=== PATIENT | female | born 1970 | race Caucasian/White ===

== ENCOUNTER 2016-04-27 19:28 | Emergency (ER) | payer SELFPAY ==
[~2016-04-27] VITALS: Ht 160 cm; Wt 137.0 kg
[~2016-04-27 19:28] MED LIST: ALBU18HF INHALATION; ALBU8.5H3 INH; AZIT250T6 PO; FIORICET PO; GUAI100L25 PO; GUAI118L94 PO; GUAI120S26 PO; METF-382 PO; NAPR-260 PO; ONDA4TAB8 PO; POLY17PO6 PO; PRED20TA PO; PRED50TA PO; TRAM50TA2 PO; TYL500 PO
[2016-04-27 19:37] VITALS: Ht 160 cm; Wt 137.0 kg
[2016-04-27] MEDS ORDERED: SOD CHLORIDE 0.9% 1,000 ML IV STA (20:45)
[2016-04-27 21:16] LABS: BASOPHILS % 0.4 % (0.0-2.0); EOSINOPHILS # 0.4 10^3/ul (0.0-0.5); EOSINOPHILS % 3.3 % (0.0-7.0); HEMOGLOBIN 13.3 g/dl (12.0-16.0); LYMPHOCYTES # 2.5 10^3/ul (0.8-2.9); LYMPHOCYTES % 22.6 % (15.0-51.0); MEAN CORPUSCULAR HEMOGLOBIN 25.6 pg (29.0-33.0); MEAN CORPUSCULAR HGB CONC 33.2 g/dl (32.0-37.0); MEAN CORPUSCULAR VOLUME 77.2 fl (82.0-101.0); MEAN PLATELET VOLUME 8.1 fl (7.4-10.4); MONOCYTE # 0.6 10^3/ul (0.3-0.9); MONOCYTES % 5.7 % (0.0-11.0); NEUTROPHIL # 7.5 10^3/ul (1.6-7.5); PLATELET COUNT 344 10^3/UL (140-440); RED BLOOD COUNT 5.18 10^6/ul (4.20-5.40); RED CELL DISTRIBUTION WIDTH 15.9 % (11.5-14.5); UNCORRECTED WBC 11.1 10^3/ul (4.8-10.8); WHITE BLOOD COUNT 11.1 10^3/ul (4.8-10.8)
[2016-04-27 21:19] LABS: CONDITION 1; LH ANALYZER COMMENTS 1
[2016-04-27 21:27] LABS: INR 0.91; PROTIME 12.2 Sec (12.2-14.2)
[2016-04-27 21:28] LABS: CHLORIDE 98 mmol/L (97-110); PARTIAL THROMBOPLASTIN TIME 27.5 Sec (25.0-35.0); POTASSIUM 4.4 mmol/L (3.5-5.1); SODIUM 141 mmol/L (135-144)
[2016-04-27 21:30] LABS: D-DIMER 251.23 ng/ml (<460)
[2016-04-27 21:31] LABS: ANION GAP 18 (8-16); BLOOD UREA NITROGEN 14 mg/dl (7-20); CARBON DIOXIDE 29 mmol/L (21-31); CREATININE 0.67 mg/dl (0.44-1.00); GLUCOSE 149 mg/dl (70-220)
[2016-04-27 21:32] LABS: CALCIUM 10.2 mg/dl (8.4-10.2)
[2016-04-27 21:45] LABS: B-TYPE NATRIURETIC PEPTIDE 35 PG/ML (0-125)
--- NOTE | 2016-04-27 21:46 | RADRPT ---
PROCEDURE: XR Chest. CLINICAL INDICATION: Chest pain. TECHNIQUE: Single frontal view of the chest was obtained COMPARISON: 03/04/2016. FINDINGS: The heart and mediastinum are within normal limits. Portable technique and patient body habitus acc entuate pulmonary vascular markings. The lungs are otherwise clear. There is no pleural effusion or pneumothorax. IMPRESSION: No acute disease. RPTAT: [facility] Physician [place] Date Time Electronically viewed and signed by [place] Physician on 04/27/2016 21:46 RS/
--- NOTE | 2016-04-27 21:52 | RADRPT ---
PROCEDURE: CT Brain without contrast. CLINICAL INDICATION: Headaches TECHNIQUE: A CT of the brain was performed on a [employer] 64-slice CT scanner utilizing axial imaging from the skull base through the vertex without IV contrast. Multiplanar reformatted images were made. Images were reviewed on a PACS workstation. The CTDIvol is 43.27 mGy and the DLP is 810 .25 mGycm. One of the following 3 dose reduction techniques were used: Automated exposure control; adjustment of the mA and/or kV according to patient size; or use of iterative reconstruction technique. COMPARISON: None available FINDINGS: There is no intracranial hemorrhage, mass effect, or midline shift. No extra-axial fluid collection is seen. The ventricles and sulci are normal in size and configuration. The density of the brain is normal, and the irving white matter differentiation appears well-preserved. The visualized scalp and calvarium are normal. The bilateral orbits are normal. The bilateral para nasal sinuses, mastoid air cells and middle ear cavities are clear. IMPRESSION: 1. No evidence of acute intracranial hemorrhage, infarcts or acute intracranial pathology. 2. Normal noncontrast head CT. RPTAT: [facility] .Justyna Major MD, Date Time Electronically viewed and signed by .Justyna Major MD, MD on 04/27/2016 21:52 .C/
[2016-04-27 21:57] LABS: TROPONIN-I < 0.012 ng/ml (0.00-0.12)
[2016-04-27] MEDS ORDERED: ACET/BUTAL/CAFF/CODEINE CAP PO ONE (22:30)
--- NOTE | 2016-04-27 22:37 | ERD ---
ER Documentation Chief Complaint Date/Time DATE: 04/27/16 TIME: 22:24 Chief Complaint kwong/right arm pain/numbess in right hand since , vomited x 2 HPI This is a 45-year-old female presenting to the emergency department for multiple complaints. Patient states she has had a headache with shortness of breath and generalized body pain 6 days. Patient also reports right-sided arm numbness and tingling. No facial numbness or tingling. No facial weakness. No generalized weakness. States this is not the worst headache she is ever had. Headache is nonradiating. No neck pain or neck stiffness. No fevers or chills denies chest pain or difficulty breathing. Patient has intermittent shortness of breath. No wheezing or cough. Has history of asthma but has not been using an inhaler. Denies any heart problems or history of CHF. ROS All systems reviewed and are negative except as per history of present illness. Medications Home Meds Active Scripts Guaifenesin/Codeine Phosphate (CHERATUSSIN AC SYRUP) 118 Ml Liquid, 10 ML PO Q6H Y for COUGH, #118 ML Prov:AWILDA GARCÍA NP 04/27/16 Acetamin/Butalbital/Caffeine* (Fioricet*) [id number] Tab, 1 TAB PO Q6H Y for PAIN, #15 TAB Prov:AWILDA GARCÍA NP 04/27/16 Kzbefogjcaw-E-Nqwiywofbj Hb* (Guaifenesin* DM Syrup) 120 Ml Syrup, 10 ML PO Q4H Y for COUGH for 3 Days, #120 ML Prov:Ekta Calderon PA-C 03/04/16 Albuterol Sulfate* (Ventolin HFA*) 18 Gm Hfa.aer.ad, 2 PUFF INHALATION Q4H, #1 INHALER Prov:Ekta Calderon PA-C 03/04/16 Prednisone* (Prednisone*) 20 Mg Tab, 40 MG PO DAILY for 4 Days, TAB Prov:Ekta Calderon PA-C 03/04/16 Ondansetron Hcl* (Zofran*) 4 Mg Tablet, 4 MG PO Q6H for NAUSEA AND/OR VOMITING, #30 TAB Prov:RONNIE GRUBER PA-C 01/29/16 Naproxen* (Naprosyn*) 500 Mg Tablet, 500 MG PO BID Y for PAIN AND/OR INFLAMMATION, #30 TAB Prov:RONNIE GRUBER PA-C 01/29/16 Polyethylene Glycol* (Miralax*) 17 Gm Powd.pack, 17 GM PO DAILY, #30 PACKET Prov:RONNIE GRUBER PA-C 01/29/16 Tramadol HCl (Tramadol HCl) 50 Mg Tablet, 50 MG PO Q4 Y for PAIN, #20 TAB Prov:RONNIE GRUBER PA-C 01/29/16 Guaifenesin-Codeine Phosphate* (Guaifenesin* with Codeine Liq) 120 Ml Liquid, 5 ML PO Q4H for COUGH, #120 ML Prov:MARITZA FLEMING [employer] MAG[employer] 09/23/15 Albuterol Sulfate* (Ventolin HFA*) 18 Gm Hfa.aer.ad, 2 PUFF INHALATION Q4H, #1 INHALER Prov:MARITZA FLEMING [employer] MAGISTRATE 09/23/15 Prednisone* (Prednisone*) 50 Mg Tablet, 50 MG PO DAILY for 7 Days, #7 TAB Prov:ROBY ADAM 09/21/15 Albuterol Sulfate* (Proair HFA*) 8.5 Gm Hfa.aer.ad, 2 PUFF INH Q4, #1 INHALER Prov:ROBY ADAM 09/21/15 Acetamin/Butalbital/Caffeine* (Fioricet*) 1 Tab Tab, 2 TAB PO Q4H Y for PAIN LEVEL 6-10, #20 TAB Prov:ROBY ADAM 09/21/15 Reported Medications Metformin Hcl* (Metformin Hcl*) 500 Mg Tablet, 500 MG PO WITH BREAKFAST DINNE, # 30 TAB 09/21/15 Guaifenesin (Q-Tussin) 100 Mg/5 Ml Syrup, 100 MG PO Q6 Y for COUGH, ML 09/21/15 Acetaminophen* (Tylenol*) 500 Mg Tab, 1000 MG PO Q12 Y for PAIN AND OR ELEVATED TEMP, TAB 09/21/15 Albuterol Sulfate* (Proair HFA*) 8.5 Gm Hfa.aer.ad, 2 PUFF INH Q4H Y for WHEEZING AND SOB, #1 INHALER 09/21/15 Azithromycin* (Azithromycin*) 250 Mg Tablet, 500 MG PO ONCE, #1 TAB STARTED ON 09/19/ FOR 5 DAYS 09/21/15 Azithromycin* (Azithromycin*) 250 Mg Tablet, 250 MG PO DAILY, #4 TAB 09/21/15 Allergies Allergies: Coded Allergies: No Known Drug Allergies (Verified Allergy, Unknown, 01/29/16) PMhx/Soc History of Surgery: Yes (umbilical hernia, c/section) Anesthesia Reaction: No Hx Neurological Disorder: No Hx Respiratory Disorders: Yes (asthma) Hx Cardiac Disorders: Yes (HTN) Hx Psychiatric Problems: No Hx Miscellaneous Medical Probl: Yes (dm) Hx Alcohol Use: No Hx Substance Use: No Hx Tobacco Use: No Physical Exam Vitals Vital Signs Date Time Temp Pulse Resp B/P Pulse Ox O2 Delivery O2 Flow Rate FiO2 04/27/16 22:55 98.1 86 22 153/76 97 Room Air 04/27/16 19:37 98.7 104 22 114/61 95 Physical Exam Const: Alert, [id number] Head: Atraumatic Eyes: Normal Conjunctiva. PERRLA ENT: Normal External Ears, Nose and Mouth. Neck: Full range of motion..~ No meningismus. Resp: Clear to auscultation bilaterally. No wheezing, rhonchi or crackles. Cardio: Regular rate and rhythm, no murmurs Abd: Soft, non tender, non distended. Normal bowel sounds Skin: No petechiae or rashes Back: No midline or flank tenderness Ext: No cyanosis, or edema Neur: Awake and alert. Normal neuro exam. Strength equal bilaterally. Psych: Normal Mood and Affect Result Diagram: 04/27/16 2100 04/27/16 2100 Results 24 hrs Laboratory Tests Test 04/27/16 21:00 Activated Partial Thromboplast Time 27.5Sec Anion Gap 18 B-Type Natriuretic Peptide 35PG/ML Basophils # 0.010^3/ul Basophils % 0.4% Blood Morphology Comment Blood Urea Nitrogen 14mg/dl Calcium Level 10.2mg/dl Carbon Dioxide Level 29mmol/L Chloride Level 98mmol/L Creatinine 0.67mg/dl D-Dimer 251.23ng/ml D-Dimer Comment Eosinophils # 0.410^3/ul Eosinophils % 3.3% Glucose Level 149mg/dl Hematocrit 40.0% Hemoglobin 13.3g/dl INR International Normalized Ratio 0.91 Lymphocytes # 2.510^3/ul Lymphocytes % 22.6% Mean Corpuscular Hemoglobin 25.6pg Mean Corpuscular Hemoglobin Concent 33.2g/dl Mean Corpuscular Volume 77.2fl Mean Platelet Volume 8.1fl Monocytes # 0.610^3/ul Monocytes % 5.7% Neutrophils # 7.510^3/ul Neutrophils % 68.0% Nucleated Red Blood Cells # 0.010^3/ul Nucleated Red Blood Cells % 0.0/100WBC Platelet Count 37357^3/UL Potassium Level 4.4mmol/L Prothrombin Time 12.2Sec Prothrombin Time Ratio 1.0 Red Blood Count 5.1810^6/ul Red Cell Distribution Width 15.9% Sodium Level 141mmol/L Troponin I < 0.012ng/ml White Blood Count 11.110^3/ul Current Medications Medications (Trade) Dose Ordered Sig/[place] Route PRN Reason Start Time Stop Time Status Last Admin Dose Admin Sodium Chloride (NS) 1,000 ml @ 1,000 mls/hr Q1H STAT IV 04/27/16 20:45 04/27/16 21:44 DC 04/27/16 21:06 Acetam/Butalbital/ Caffeine/Codeine (Fioricet/ Codeine) 1 cap ONCE ONCE PO 04/27/16 22:30 04/27/16 22:31 DC 04/27/16 22:08 Procedures/MDM ED COURSE: The patient was stable throughout ED course. I kept the patient and/or family informed of laboratory and diagnostic imaging results throughout the ED course. Fioricet given Laboratory CBC WBC 11.1 otherwise negative BMP no significant electrolyte abnormality Troponin <0.012 PT 12.2 PTT 27.5 INR 0.91 BNP 35 D-dimer 251.23 Imaging Patient: MADDI MACHADO : 1970 Age: 45 Sex: F MR #: [id number] DOS: 04/27/162044 Ordering MD: AWILDA GARCÍA NP Location: [facility] Room/Bed: PROCEDURE: XR Chest. CLINICAL INDICATION: Chest pain. TECHNIQUE: Single frontal view of the chest was obtained COMPARISON: 03/04/2016. FINDINGS: The heart and mediastinum are within normal limits. Portable technique and patient body habitus accentuate pulmonary vascular markings. The lungs are otherwise clear. There is no pleural effusion or pneumothorax. IMPRESSION: No acute disease. Patient: MADDI MACHADO : 1970 Age: 45 Sex: F MR #: [id number] [facility] #: [id number] DOS: 04/27/162044 Ordering MD: AWILDA GARCÍA NP Location: [facility] Room/Bed: PROCEDURE: CT Brain without contrast. CLINICAL INDICATION: Headaches TECHNIQUE: A CT of the brain was performed on a [employer] 64-slice CT scanner utilizing axial imaging from the skull base through the vertex without IV contrast. Multiplanar reformatted images were made. Images were reviewed on a PACS workstation. The CTDIvol is 43.27 mGy and the DLP is 810.25 mGycm. One of the following 3 dose reduction techniques were used: Automated exposure control; adjustment of the mA and/or kV according to patient size; or use of iterative reconstruction technique. COMPARISON: None available FINDINGS: There is no intracranial hemorrhage, mass effect, or midline shift. No extra- axial fluid collection is seen. The ventricles and sulci are normal in size and configuration. The density of the brain is normal, and the irving white matter differentiation appears well-preserved. The visualized scalp and calvarium are normal. The bilateral orbits are normal. The bilateral paranasal sinuses, mastoid air cells and middle ear cavities are clear. IMPRESSION: 1. No evidence of acute intracranial hemorrhage, infarcts or acute intracranial pathology. 2. Normal noncontrast head CT. EKG: As interpreted by Dr. Nash Rate/Rhythm: Normal sinus rhythm with heart rate 98 bpm QRS, ST, T-waves: No changes consistent w/ acute ischemia Impression: No evidence of ischemia or arrhythmia MDM: 45 year old female presents to ER with multiple complaints. Patient had headache, shortness of breath and generalized body pain with right sided arm weakness. Patient given Fioricet for headache with some relief of pain. Labs unremarkable. No significant infection or anemia. No significant electrolyte imbalance. Troponin is negative. BNP is within normal limits. D-dimer is within normal limits. Chest x-ray reviewed by radiologist shows the heart and mediastinum are within normal limits. Portable technique and patient body habitus accentuate pulmonary vascular markings. The lungs are otherwise clear. There is no pleural effusion or pneumothorax. CT brain reviewed by radiologist as no evidence of acute intracranial hemorrhage, infarcts or acute intracranial pathology. Normal noncontrast head CT. Vital signs remained stable. EKG interpreted by myself and Dr. Nash as normal sinus rhythm with heart rate 98 bpm. Patient remains calm and comfortable throughout ED visit. Patient given IV fluid bolus of normal saline and Fioricet. Symptoms have now resolved. Low suspicion for acute LA, CVA, intracranial hemorrhage and mass. Patient is appropriate for outpatient management will be given prescription for Fioricet and Cheratussin AC syrup. Instructed patient to follow-up with primary care provider in the next 2-3 days for reassessment. Return to ED for any high fever, chest pain, difficulty breathing, shortness breath, wheezing, vomiting, diarrhea, abdominal pain or any new or worsening symptoms. Patient verbalizes understanding. All questions answered at discharge. Departure Diagnosis: Primary Impression: Headache Headache type: unspecified Headache chronicity pattern: acute headache Intractability: not intractable Qualified Code: R51 - Acute nonintractable headache, unspecified headache type Additional Impression: Numbness and tingling in right hand Condition: Stable AWILDA GARCÍA NP Apr 27, 2016 22:37
[2016-04-27] MEDS ORDERED: FIORICET PO (22:38)
[2016-04-27] MEDS ORDERED: GUAI118L22 PO (22:42)
[2016-04-27 22:55] VITALS: BP 153/76; PULSE 86; RESP 22; TEMP 98.1
== END 2016-04-27 22:57 | disposition home or self-care (01) ==
LOC: FTE 19:28
DX: R51 Headache (principal); R20.2 Paresthesia of skin; I10 Essential (primary) hypertension; J45.909 Unspecified asthma, uncomplicated; E11.9 Type 2 diabetes mellitus without complications; R07.9 Chest pain, unspecified; Z79.84 Long term (current) use of oral hypoglycemic drugs
CPT/HCPCS: 36415; 70450; 71010; 80048; 83880; 84484; 85025; 85378; 85610; 85730; 93005; 99285; J7030

== ENCOUNTER 2016-06-08 13:49 | Emergency (ER) | payer MEDICAID ==
[~2016-06-08] VITALS: Ht 162.6 cm; Wt 135.0 kg
[~2016-06-08 13:49] MED LIST changes: +GUAI118L22 PO
[2016-06-08 13:52] VITALS: Ht 162.6 cm; Wt 135.0 kg
[2016-06-08] MEDS ORDERED: AZIT250T94 PO (14:26)
[2016-06-08] MEDS ORDERED: IBUP-1542 PO (14:26)
[2016-06-08] MEDS ORDERED: D-ME473S18 PO (14:26)
--- NOTE | 2016-06-08 14:29 | ERD ---
ER Documentation Chief Complaint Date/Time DATE: 06/08/16 TIME: 14:29 Chief Complaint fever , cough x 1 week HPI This 45-year-old female presents with productive cough and fever at home for last week. She has no fever triage, chest pain, vomiting, abdominal pain, neck stiffness, rashes. ROS All systems reviewed and are negative except as per history of present illness. Medications Home Meds Active Scripts Ibuprofen* (Motrin*) 600 Mg Tab, 600 MG PO Q6, #15 TAB Prov:FAREED ANGLIN MD 06/08/16 Dextromethorphan Hb-Promethazine Hcl (Promethazine DM Syrup) 473 Ml Syrup, 5 ML PO Q6H Y for COUGH, #4 OZ Prov:FAREED ANGLIN MD 06/08/16 Azithromycin* (Zithromax*) 250 Mg Tablet, 250 MG PO .ZPACK DIRECTED, #6 TAB TAKE 500 MG (2 TABS) THE FIRST DAY THEN 250 MG (1 TAB) DAYS 2-5 Prov:FAREED ANGLIN MD 06/08/16 Guaifenesin/Codeine Phosphate (CHERATUSSIN AC SYRUP) 118 Ml Liquid, 10 ML PO Q6H Y for COUGH, #118 ML Prov:AWILDA GARCÍA NP 04/27/16 Acetamin/Butalbital/Caffeine* (Fioricet*) [id number] Tab, 1 TAB PO Q6H Y for PAIN, #15 TAB Prov:AWILDA GARCÍA NP 04/27/16 Obzlnjccwch-P-Luzxbvwams Hb* (Guaifenesin* DM Syrup) 120 Ml Syrup, 10 ML PO Q4H Y for COUGH for 3 Days, #120 ML Prov:Ekta Calderon PA-C 03/04/16 Albuterol Sulfate* (Ventolin HFA*) 18 Gm Hfa.aer.ad, 2 PUFF INHALATION Q4H, #1 INHALER Prov:Ekta Calderon PA-C 03/04/16 Prednisone* (Prednisone*) 20 Mg Tab, 40 MG PO DAILY for 4 Days, TAB Prov:Ekta Calderon PA-C 03/04/16 Ondansetron Hcl* (Zofran*) 4 Mg Tablet, 4 MG PO Q6H for NAUSEA AND/OR VOMITING, #30 TAB Prov:RONNIE GRUBER PA-C 01/29/16 Naproxen* (Naprosyn*) 500 Mg Tablet, 500 MG PO BID Y for PAIN AND/OR INFLAMMATION, #30 TAB Prov:RONNIE GRUBERC 01/29/16 Polyethylene Glycol* (Miralax*) 17 Gm Powd.pack, 17 GM PO DAILY, #30 PACKET Prov:RONNIE GRUBER PA-C 01/29/16 Tramadol HCl (Tramadol HCl) 50 Mg Tablet, 50 MG PO Q4 Y for PAIN, #20 TAB Prov:RONNIE GRUBER PA-C 01/29/16 Guaifenesin-Codeine Phosphate* (Guaifenesin* with Codeine Liq) 120 Ml Liquid, 5 ML PO Q4H for COUGH, #120 ML Prov:MARITZA FLEMING [employer] 09/23/15 Albuterol Sulfate* (Ventolin HFA*) 18 Gm Hfa.aer.ad, 2 PUFF INHALATION Q4H, #1 INHALER Prov:MARITZA FLEMING [employer] 09/23/15 Prednisone* (Prednisone*) 50 Mg Tablet, 50 MG PO DAILY for 7 Days, #7 TAB Prov:ROBY ADAM 09/21/15 Albuterol Sulfate* (Proair HFA*) 8.5 Gm Hfa.aer.ad, 2 PUFF INH Q4, #1 INHALER Prov:ROBY ADAM 09/21/15 Acetamin/Butalbital/Caffeine* (Fioricet*) 1 Tab Tab, 2 TAB PO Q4H Y for PAIN LEVEL 6-10, #20 TAB Prov:ROBY ADAM 09/21/15 Reported Medications Metformin Hcl* (Metformin Hcl*) 500 Mg Tablet, 500 MG PO WITH BREAKFAST DINNE, # 30 TAB 09/21/15 Guaifenesin (Q-Tussin) 100 Mg/5 Ml Syrup, 100 MG PO Q6 Y for COUGH, ML 09/21/15 Acetaminophen* (Tylenol*) 500 Mg Tab, 1000 MG PO Q12 Y for PAIN AND OR ELEVATED TEMP, TAB 09/21/15 Albuterol Sulfate* (Proair HFA*) 8.5 Gm Hfa.aer.ad, 2 PUFF INH Q4H Y for WHEEZING AND SOB, #1 INHALER 09/21/15 Azithromycin* (Azithromycin*) 250 Mg Tablet, 500 MG PO ONCE, #1 TAB STARTED ON 09/19/ FOR 5 DAYS 09/21/15 Azithromycin* (Azithromycin*) 250 Mg Tablet, 250 MG PO DAILY, #4 TAB 09/21/15 Allergies Allergies: Coded Allergies: No Known Drug Allergies (Verified Allergy, Unknown, 01/29/16) PMhx/Soc History of Surgery: Yes (umbilical hernia, c/section) Anesthesia Reaction: No Hx Neurological Disorder: No Hx Respiratory Disorders: Yes (asthma) Hx Cardiac Disorders: Yes (HTN) Hx Psychiatric Problems: No Hx Miscellaneous Medical Probl: Yes (dm) Hx Alcohol Use: No Hx Substance Use: No Hx Tobacco Use: No Physical Exam Vitals Vital Signs Date Time Temp Pulse Resp B/P Pulse Ox O2 Delivery O2 Flow Rate FiO2 06/08/16 13:52 99.6 98 18 127/77 96 Physical Exam Const: [] Alert, [id number]-jfzoiglzk. Head: Atraumatic Eyes: Normal Conjunctiva ENT: Normal External Ears, Nose and Mouth. Neck: Full range of motion..~ No meningismus. Resp: Clear to auscultation bilaterally. Patient has a coarse cough without rales, wheezing or retractions. Cardio: Regular rate and rhythm, no murmurs Abd: Soft, non tender, non distended. Normal bowel sounds Skin: No petechiae or rashes Back: No midline or flank tenderness Ext: No cyanosis, or edema Neur: Awake and alert Psych: Normal Mood and Affect Procedures/MDM Patient presents with productive cough for the last week with no fever triage, no evidence of hypoxemia or respiratory distress. She will treated with Zithromax and promethazine and ibuprofen for bronchitis. The patient was stable with no new complaints during the ER course. Clinically, there is no current evidence to suggest meningitis, sepsis, acute abdomen, pneumonia, acute coronary syndrome, pulmonary embolism, or any other emergent condition appearing to require further evaluation or hospitalization. The patient should certainly return for any new or worsening symptoms per the aftercare instructions. They should otherwise follow-up with her primary care doctor for reevaluation this week. Departure Diagnosis: Primary Impression: Fever Fever type: unspecified Qualified Code: R50.9 - Fever, unspecified fever cause Additional Impression: URI, acute Condition: Stable Patient Instructions: Acute Bronchitis, Fever Control (Adult) Additional Instructions: Cheque otro vez con ro doctor primario en el proximo palmer or regresa para mas o nueva simptomas. FAREED ANGLIN MD Jun 08, 2016 14:29
== END 2016-06-08 15:09 | disposition home or self-care (01) ==
LOC: FTE 13:49
DX: R50.9 Fever, unspecified (principal); J06.9 Acute upper respiratory infection, unspecified; I10 Essential (primary) hypertension; E11.9 Type 2 diabetes mellitus without complications; J45.909 Unspecified asthma, uncomplicated; Z79.84 Long term (current) use of oral hypoglycemic drugs
CPT/HCPCS: 99284

== ENCOUNTER 2016-12-01 13:13 | Emergency (ER) | payer SELFPAY ==
[~2016-12-01] VITALS: Ht 160 cm; Wt 133.0 kg
[~2016-12-01 13:13] MED LIST changes: +AZIT250T94 PO; +D-ME473S18 PO; +IBUP-1542 PO; -METF-382 PO; +METF500T4 PO
[2016-12-01 13:22] VITALS: Ht 160 cm; Wt 133.0 kg
== END 2016-12-02 00:06 | disposition left against medical advice (07) ==
LOC: FTE 13:13
DX: Z53.21 Procedure and treatment not carried out due to patient leaving prior to being seen by health care provider (principal)

== ENCOUNTER 2017-09-22 09:54 | Emergency (ER) | END 2017-09-22 16:07 | disposition home or self-care (01) ==

== ENCOUNTER 2018-08-24 12:16 | Emergency (ER) | payer MEDICAID ==
[~2018-08-24] VITALS: Ht 172.7 cm; Wt 160.0 kg
[~2018-08-24 12:16] MED LIST changes: -ALBU8.5H3 INH; -AZIT250T6 PO; -AZIT250T94 PO; +CHOL100062 PO; -D-ME473S18 PO; -FIORICET PO; -GUAI100L25 PO; -GUAI118L22 PO; -GUAI118L94 PO; -GUAI120S26 PO; -IBUP-1542 PO; +METF-849 PO; -METF500T4 PO; -NAPR-260 PO; +NAPR-985 PO; -ONDA4TAB8 PO; -POLY17PO6 PO; -PRED20TA PO; -PRED50TA PO; -TRAM50TA2 PO; -TYL500 PO
[2018-08-24 12:53] VITALS: Ht 172.7 cm; Wt 160.0 kg
[2018-08-24] MEDS ORDERED: SOD CHLORIDE 0.9% 500 ML IV STA (13:38)
[2018-08-24] MEDS ORDERED: METF100010 PO (13:47)
[2018-08-24] MEDS ORDERED: CHOL100062 PO (13:47)
[2018-08-24] MEDS ORDERED: FER325 PO (13:47)
[2018-08-24] MEDS ORDERED: ASCO500C7 PO (13:48)
[2018-08-24] MEDS ORDERED: METOCLOPRAMIDE 10 MG INJ IV ONE (14:30)
[2018-08-24 15:40] VITALS: BP 124/73; PULSE 81; RESP 22
--- NOTE | 2018-08-24 15:47 | ERD ---
ER Documentation Chief Complaint Chief Complaint UNEXPLAINED GENERALIZED WEAKNESS & ALOC, POC GLU 96 HPI 48-year-old female presenting with generalized weakness is been going on for 1 week. Although the chief complaint states altered level of consciousness, the patient is not altered. Her daughter is at bedside. She does not feel that her mother has been confused. She has had generalized weakness for about 1 week but no focal weakness. No associated numbness or tingling. Mild headache but no severe headaches. No chest pain. Has chronic shortness of breath with exertion that has not changed recently. No recent illnesses. No UTI symptoms. No cough. No melena or hematochezia. She does endorse a history of anemia when she was having heavy periods, however her periods are now irregular due to perimenopause. ROS All systems reviewed and are negative except as per history of present illness. Medications Home Meds Reported Medications Ascorbic Acid* (Vitamin C*) 500 Mg Capsule.sa, 500 MG PO DAILY, CAP 08/24/18 Cholecalciferol* (Vitamin D3*) 1,000 Unit Tablet, 1000 UNIT PO DAILY, TAB 08/24/18 Ferrous Sulfate* (Ferrous Sulfate*) 325 Mg Tabec, 325 MG PO TID, TAB 08/24/18 Metformin Hcl* (Metformin Hcl*) 1,000 Mg Tablet, 1000 MG PO WITH BREAKFAST DINNE, #60 TAB 08/24/18 Discontinued Reported Medications Cholecalciferol* (Vitamin D3*) 1,000 Unit Tablet, 1000 UNIT PO DAILY, TAB 09/22/17 Albuterol Sulfate* (Ventolin HFA*) 18 Gm Hfa.aer.ad, 2 PUFF INHALATION Q6H PRN for WHEEZING AND SOB, #1 INHALER 09/22/17 Metformin* (Glucophage*) 500 Mg Tab, 500 MG PO WITH MEALS, #90 TAB 09/22/17 Discontinued Scripts Naproxen* (Naprosyn*) 500 Mg Tablet, 500 MG PO BID PRN for PAIN AND/OR INFLAMMATION, #30 TAB Prov:LETY DOE MD 09/22/17 Allergies Allergies: Coded Allergies: No Known Drug Allergies (Verified Allergy, Unknown, 08/24/18) PMhx/Soc History of Surgery: Yes (umbilical hernia, c/section) Anesthesia Reaction: No Hx Neurological Disorder: No Hx Respiratory Disorders: Yes (asthma) Hx Cardiac Disorders: Yes (HTN) Hx Psychiatric Problems: No Hx Miscellaneous Medical Probl: Yes (dm) Hx Alcohol Use: No Hx Substance Use: No Hx Tobacco Use: No Smoking Status: Never smoker FmHx Family History: diabetes Physical Exam Vitals Vital Signs Date Temp Pulse Resp B/P (MAP) Pulse Ox O2 O2 Flow FiO2 Time Delivery Rate 08/24/18 81 22 124/73 98 Room Air 15:40 (90) 08/24/18 98.2 84 14 146/93 99 Room Air 14:18 (110) 08/24/18 97.7 86 18 155/102 96 12:53 (119) Physical Exam Const: No acute distress, morbidly obese Head: Atraumatic Eyes: Normal Conjunctiva, PERRLA, EOMI ENT: Dry mucous membranes. Normal External Ears, Nose and Mouth. Neck: Full range of motion. No meningismus. Resp: Clear to auscultation bilaterally Cardio: Regular rate and rhythm, no murmurs. 2+ distal pulses in all 4 ex tremities Abd: Soft, non tender, non distended. Normal bowel sounds Skin: No petechiae or rashes Back: No midline or flank tenderness Ext: No cyanosis, or edema. No muscular tenderness to palpation. Neur: Awake and alert, oriented x3, cranial nerves intact, normal speech, strength and sensations intact in all 4 extremities Psych: Normal Mood and Affect Result Diagram: 08/24/18 1408 08/24/18 1408 Results 24 hrs Laboratory Tests Test 08/24/18 12:52 08/24/18 13:43 08/24/18 14:08 Bedside Glucose 96 mg/dL 98 mg/dL White Blood Count 9.9 10^3/ul Red Blood Count 4.85 10^6/ul Hemoglobin 12.1 g/dl Hematocrit 39.4 % Mean Corpuscular Volume 81.2 fl Mean Corpuscular Hemoglobin 24.9 pg Mean Corpuscular 30.7 g/dl Hemoglobin Concent Red Cell Distribution Width 15.2 % Platelet Count 338 10^3/UL Mean Platelet Volume 9.2 fl Immature Granulocytes % 0.500 % Neutrophils % 68.4 % Lymphocytes % 21.3 % Monocytes % 5.8 % Eosinophils % 3.7 % Basophils % 0.3 % Nucleated Red Blood Cells % 0.0 /100WBC Immature Granulocytes # 0.050 10^3/ul Neutrophils # 6.8 10^3/ul Lymphocytes # 2.1 10^3/ul Monocytes # 0.6 10^3/ul Eosinophils # 0.4 10^3/ul Basophils # 0.0 10^3/ul Nucleated Red Blood Cells # 0.0 10^3/ul Urine Color YELLOW Urine Clarity CLEAR Urine pH 6.0 Urine Specific [place] 1.021 Urine Ketones NEGATIVE mg/dL Urine Nitrite NEGATIVE mg/dL Urine Bilirubin NEGATIVE mg/dL Urine Urobilinogen 1+ mg/dL Urine Leukocyte Esterase NEGATIVE Mattie/ul Urine Hemoglobin NEGATIVE mg/dL Urine Glucose NEGATIVE mg/dL Urine Total Protein NEGATIVE mg/dl Sodium Level 138 mmol/L Potassium Level 4.0 mmol/L Chloride Level 101 mmol/L Carbon Dioxide Level 27 mmol/L Anion Gap 10 Blood Urea Nitrogen 15 mg/dl Creatinine 0.61 mg/dl Est Glomerular Filtrat > 60 mL/min Rate mL/min Glucose Level 90 mg/dl Calcium Level 10.0 mg/dl Troponin I < 0.012 ng/ml Current Medications Medications Dose Sig/[place] Start Time Status Last (Trade) Ordered Route PRN Stop Time Admin Dose Reason Admin Sodium 500 ml @ Q1H STAT 08/24/18 DC 08/24/18 Chloride 500 mls/hr IV 13:38 14:16 08/24/18 14:37 10 mg ONCE ONCE 08/24/18 DC 08/24/18 Metoclopramid IV 14:30 14:29 e HCl 08/24/18 14:31 (Reglan) Procedures/MDM EMERGENT LABS AND DIAGNOSTIC STUDIES: Lab Results above were reviewed and interpreted by me. CBC: no anemia or evidence of infection BMP: [no e/o clinically significant electrolyte abnormality severe acidosis, alkalosis, renal failure, diabetic ketoacidosis] Mal limits, not indicative of cardiac ischemia Trop negative, no e/o myocardial ischemia UA: no evidence of infection 12-lead EKG was interpreted by Angelica Hernadez MD: Normal Sinus Rhythm Normal axis Normal intervals No acute ST or T wave changes suggestive of acute ischemia or STEMI. Radiology Results as interpreted by Radiology below were reviewed by Olinda Hernadez MD: Chest x-ray shows no acute abnormalities Initial Nursing notes reviewed. Previous Medical Records requested via the Electronic Health Record. EMERGENCY DEPARTMENT COURSE / MEDICAL DECISION MAKING: Patient is presenting with generalized weakness for the past 1 week. She is neurovascularly intact without evidence of stroke. I do not suspect acute muscular disease. Labs did not show any significant abnormalities. Low suspicion for PE, ACS, acute infection, or severe dehydration. She was treated with IV fluids and Reglan for her headache. Upon reevaluation, she does feel much better. I feel the patient is stable for discharge with continued outpatient follow-up. If any of her symptoms are to worsen, she was urged to return to the ER immediately. Follow-up with PCP was recommended within the next 2 to 3 days. Patient is agreeable. Patient's blood pressure was elevated (>120/80) but appears stable without evidence of hypertensive emergency or urgency. The patient was counseled about the risks of hypertension and urged to pursue outpatient monitoring and therapy within a week with their primary care physician. Departure Diagnosis: Primary Impression: Generalized weakness Additional Impression: Fatigue Fatigue type: unspecified Qualified Codes: R53.83 - Other fatigue Condition: Stable Patient Instructions: Weakness, Unk Cause Additional Instructions: Make an appointment to see her primary care doctor within the next 2 to 3 days. If any of your symptoms worsen, return to the ER immediately. EVIE HERNADEZ MD August 24, 2018 15:47
== END 2018-08-24 15:51 | disposition home or self-care (01) ==
LOC: E/R 12:16
DX: R53.1 Weakness (principal); E11.9 Type 2 diabetes mellitus without complications; R53.83 Other fatigue; I10 Essential (primary) hypertension; J45.909 Unspecified asthma, uncomplicated; Z79.84 Long term (current) use of oral hypoglycemic drugs
CPT/HCPCS: 36415; 71045; 80048; 81003; 82962; 84484; 85025; 93005; 96361; 96374; J2765; J7040; Z7502